=== PATIENT | female | born 1995 | race Caucasian/White ===

== ENCOUNTER 2016-01-20 14:04 | Outpatient (RCR) | payer OTHER ==
[~2016-01-20 14:04] MED LIST: IBU800 M1 PO; PERCOCET 325 MG1 TA2 PO; PRENATA1 CTB PO
== END 2016-04-19 ==
LOC: WSOH
DX: M25.562 Pain in left knee (principal)

== ENCOUNTER 2016-12-19 15:10 | Outpatient (RCR) | payer OTHER | END 2016-12-30 13:50 | disposition still patient (30) | LOC: WSOH 15:10 | DX: S06.0X0A Concussion without loss of consciousness, initial encounter (principal); M79.651 Pain in right thigh; R51 Headache; Y04.2XXA Assault by strike against or bumped into by another person, initial encounter; Y04.1XXA Assault by human bite, initial encounter; Y92.219 Unspecified school as the place of occurrence of the external cause; Y99.0 Civilian activity done for income or pay ==

== ENCOUNTER 2017-02-20 09:59 | Outpatient (RCR) | payer OTHER | END 2017-03-06 15:00 | disposition still patient (30) | LOC: WSOH 09:59 | DX: S06.0X0D Concussion without loss of consciousness, subsequent encounter (principal); Y04.1XXD Assault by human bite, subsequent encounter; Y99.0 Civilian activity done for income or pay ==

== ENCOUNTER 2018-07-05 10:07 | Emergency (ER) | payer SELFPAY ==
[~2018-07-05] VITALS: Ht 162.6 cm; Wt 68.2 kg
[2018-07-05 10:16] VITALS: BP 135/89; TEMP 97.9
[2018-07-05 10:39] LABS: BASO % 0.4 % (0.0-2.0); EOS # 0.2 (0.0-0.7); EOS % 1.8 % (0-4.0); GRAN # 6.9 (1.4-6.5); GRAN % 74.9 % (42.2-75.2); HEMOGLOBIN 12.2 g/dl (12.5-16.0); LYMPH # 1.4 (1.2-3.4); LYMPH % 14.6 % (20.0-51.0); MEAN CELL VOLUME 86 fl (80.0-100.0); MEAN CORPUSCULAR HEMOGLOBIN 29 pg (27.0-31.0); MEAN CORPUSCULAR HGB CONC 33 g/dl (33.0-37.0); MEAN PLATELET VOLUME 9.9 fl (7.4-10.4); MONO # 0.7 (0.1-0.6); MONO % 7.9 % (1.7-9.3); PLATELET COUNT 222 K/mm3 (130-400); RED BLOOD COUNT 4.28 M/mm3 (4.10-5.30); REDCELL DISTRIBUTION WIDTH-CV 12.4 % (11.5-14.5)
[2018-07-05 10:42] LABS: HEMATOCRIT 36.8 % (37.0-47.0)
[2018-07-05 10:48] LABS: ALBUMIN 3.4 gm/dL (3.5-5.0); BILIRUBIN,TOTAL 0.5 mg/dL (0.0-1.0); CALCIUM 8.8 mg/dL (8.4-10.2); CREATININE, serum 0.71 (0.52-1.25); POTASSIUM 3.6 mmol/L (3.4-5.0); TOTAL PROTEIN 6.6 gm/dL (6.4-8.2)
[2018-07-05 11:32] VITALS: PULSE 93
== END 2018-07-05 11:32 | disposition home or self-care (01) ==
LOC: COL.ER 10:07
PROVIDERS: Emergency Medicine
DX: O9A.213 Injury, poisoning and certain other consequences of external causes complicating pregnancy, third trimester (principal); S30.1XXA Contusion of abdominal wall, initial encounter; Z3A.30 30 weeks gestation of pregnancy; W50.0XXA Accidental hit or strike by another person, initial encounter

== ENCOUNTER 2018-07-05 11:54 | Outpatient (CLI) | payer SELFPAY ==
[~2018-07-05] VITALS: Ht 162.6 cm; Wt 122.3 kg
[2018-07-05 11:55] VITALS: TEMP 99.3
[2018-07-05 12:00] VITALS: BP 119/75; PULSE 87; TEMP 99.3
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
--- NOTE | 2018-07-05 12:55 | NUR ---
1244- EFM and TOCO off, Discharge paperwork given and explained. Pt denies questions. 1255- Pt leaves unit ambulatory with discharge instructions in stable condition.
== END 2018-07-05 12:55 | disposition home or self-care (01) ==
LOC: LDRO 11:54
DX: O9A.213 Injury, poisoning and certain other consequences of external causes complicating pregnancy, third trimester (principal); Z3A.29 29 weeks gestation of pregnancy

== ENCOUNTER 2018-08-26 00:59 | Inpatient (IN) | payer BC, MEDICAID ==
[2018-08-26] VITALS (57 sets, daily range): BP systolic 78–140; BP diastolic 43–84; PULSE 74–139; TEMP 97.7–98.9
[~2018-08-26] VITALS: Ht 162.6 cm; Wt 80.0 kg
--- NOTE | 2018-08-26 01:10 | NUR ---
PT ARRIVED TO UNIT AMBULATORY WITH SPOUSE WITH COMPLAINTS OF CONTRACTIONS THAT BEGAN AT 1930 LAST EVENING. PT TO ROOM, CHANGED INTO GOWN. EFM X2 APPLIED, VS OBTAINED, SVE PERFORMED.
--- NOTE | 2018-08-26 02:15 | NUR ---
[id number]- DIFFICULTY TRACING CONTRACTION PATTERN DUE TO MATERNAL POSITION, TOCO ADJUSTED.
[2018-08-26 02:59] LABS: BASO # 0.1 (0.0-0.2); BASO % 0.3 % (0.0-2.0); EOS % 0.1 % (0-4.0); GRAN # 12.6 (1.4-6.5); GRAN % 84.7 % (42.2-75.2); HEMOGLOBIN 11.6 g/dl (12.5-16.0); LYMPH # 1.3 (1.2-3.4); LYMPH % 8.9 % (20.0-51.0); MEAN CELL VOLUME 82 fl (80.0-100.0); MEAN CORPUSCULAR HEMOGLOBIN 27 pg (27.0-31.0); MEAN CORPUSCULAR HGB CONC 33 g/dl (33.0-37.0); MEAN PLATELET VOLUME 10.6 fl (7.4-10.4); MONO # 0.8 (0.1-0.6); MONO % 5.6 % (1.7-9.3); PLATELET COUNT 207 K/mm3 (130-400); RED BLOOD COUNT 4.26 M/mm3 (4.10-5.30); REDCELL DISTRIBUTION WIDTH-CV 12.7 % (11.5-14.5)
--- NOTE | 2018-08-26 03:15 | NUR ---
0305- JOSH AVILA IN ROOM FOR EPIDURAL PLACMENT. 0306- PT SITTING UP AT BEDSIDE, BP TO TAKE EVERY 5 MINUTES, PULSE OX ON. US TRACING MATERNAL HR DURING EPIDURAL PLACEMENT. 0311- SINGLE SHOT GIVEN BY JOSH AVILA. PT TOLERATED WELL. 0315- PT REPOSITIONED INTO SEMIFOWLERS WITH LEFT WEDGE.
--- NOTE | 2018-08-26 06:25 | NUR ---
Report from Mickey Plasencia RN and care of patient assumed. Patient comfortable with epidural and sitting upright in bed. Herrings adjusted.
--- NOTE | 2018-08-26 06:42 | NUR ---
Patient calls out and reports feeling light headed and dizzy. Patient repositioned LL, LR bolus infusing and Ephedrine given, see EMAR. Late decelerations noted with contractions and FHR noted tachycardic following interventions at 0652. Patient reports feeling better at 0653. Dr. Schwarz updated by Mickey Plasencia RN, see physician notification. Will continue interventions.
--- NOTE | 2018-08-26 07:05 | NUR ---
FHR remains tachycardic. RN remains at bedside adjusting toco. Patient repositioned RL, states she still feels better. Will update physician when on unit, in transit to hospital. VS WNL at this time.
--- NOTE | 2018-08-26 07:23 | NUR ---
See physician notification. Patient resting comfortably in RL position. LR bolus still infusing.
--- NOTE | 2018-08-26 08:00 | NUR ---
Patient repositioned RN at bedside palpating abdomen and adjusting toco.
--- NOTE | 2018-08-26 08:15 | NUR ---
0815- Dr. Schwarz on unit, reviews FHR strip and contraction pattern since admission. 0820- Physician at bedside. Discussing AROM, patient agrees. 0822- AROM by Dr. Schwarz for moderate amount of clear fluid. SVE 8/100/-2 with bloody show. Pericare given, patient repositioned LL. Orders to continue to allow patient to labor spontaneously. [place] adjusted.
--- NOTE | 2018-08-26 09:00 | NUR ---
0845- Patient repositioned RL. Difficulty tracing contractions via toco after repositioning. RN at bedside adjusting monitor and palpating abdomen. Contractions noted every 2-2.5 minutes with relaxed uterine tone in between.
--- NOTE | 2018-08-26 09:45 | NUR ---
Dr. Schwarz at bedside. SVE unchanged, cervix noted to be slightly swollen on right side. Discussing plan of care to allow to labor for another hour and recheck cervix at 1100. Patient repositoned LL with peanut ball in place. Comfortable with epidural.
--- NOTE | 2018-08-26 11:25 | NUR ---
Patient repositioned RL with peanut ball in place. Comfortable with epidural.
--- NOTE | 2018-08-26 12:15 | NUR ---
Dr. Schwarz at bedside. SVE unchanged. Discussing plan of care. Decision for section at 1220. Patient prepped for surgery. Shave completed, preop prep completed per protocol. Bryan Mahajan CRNA at bedside. 1225- Patient off EFM to OR. See intraoperative report.
--- NOTE | 2018-08-26 14:20 | NUR ---
1400- Patient meets PACU discharge criteria. VS WNL. Transferred to room 209 and oriented to new plan of care and room. 1415- BP noted to be trending hypotensive. Pulse elevated but remains in range that patient had been running throughout labor/surgery. Vaginal bleeding WNL. Patient denies abominal tenderness or pain, denies nausea or dizziness. Asymptomatic. See physician notification, orders recieved and Hespan infusing. See EMAR.
--- NOTE | 2018-08-26 15:00 | NUR ---
Vital signs WNL. Vaginal bleeding remains WNL and patient denies any concerns or complaints. Hespan continues to infuse per order.
--- NOTE | 2018-08-26 17:34 | NUR ---
1715 Visitng with family. Denies needs. Medicated with Percocet 1 tab for control of pain. Snack arrives. Encouraged to feed infant after eating.
[2018-08-27 00:05] VITALS: BP 109/57; PULSE 82; TEMP 97.9
[2018-08-27 04:01] VITALS: BP 115/66; PULSE 98; TEMP 97.6
[2018-08-27 07:18] LABS: BASO % 0.3 % (0.0-2.0); EOS # 0.1 (0.0-0.7); GRAN # 8.6 (1.4-6.5); GRAN % 74.4 % (42.2-75.2); LYMPH # 1.8 (1.2-3.4); LYMPH % 15.7 % (20.0-51.0); MEAN CELL VOLUME 84 fl (80.0-100.0); MEAN CORPUSCULAR HGB CONC 33 g/dl (33.0-37.0); MEAN PLATELET VOLUME 10.4 fl (7.4-10.4); MONO % 8.3 % (1.7-9.3); PLATELET COUNT 167 K/mm3 (130-400); RED BLOOD COUNT 2.92 M/mm3 (4.10-5.30)
[2018-08-27 07:24] LABS: HEMATOCRIT 24.4 % (37.0-47.0); MEAN CORPUSCULAR HEMOGLOBIN 27 pg (27.0-31.0)
[2018-08-27 07:45] VITALS: BP 109/67; PULSE 83; TEMP 97.6
[2018-08-27 13:00] VITALS: BP 102/59; PULSE 90; TEMP 98.5
--- NOTE | 2018-08-27 14:00 | NUR ---
1406 Motrin 800 mg p.o. given by Elly tian per request and as ordered.
--- NOTE | 2018-08-27 17:15 | NUR ---
1720 Rests in bed, alert. Percocet 5/325 mg. given per request and as ordered. baby, denies any other need at this time.
--- NOTE | 2018-08-27 18:45 | NUR ---
Report recieved. well. Updated whiteboard and reviewed POC. Denied questions or concerns.
[2018-08-27 20:30] VITALS: BP 108/54; PULSE 82; TEMP 98
[2018-08-28 09:00] VITALS: BP 112/73; PULSE 76; TEMP 97.9
[2018-08-28 10:26] LABS: MEAN CELL VOLUME 84 fl (80.0-100.0); MEAN CORPUSCULAR HGB CONC 33 g/dl (33.0-37.0); PLATELET COUNT 214 K/mm3 (130-400); RED BLOOD COUNT 3.05 M/mm3 (4.10-5.30); REDCELL DISTRIBUTION WIDTH-CV 13.2 % (11.5-14.5)
[2018-08-28 10:37] LABS: HEMATOCRIT 25.7 % (37.0-47.0); HEMOGLOBIN 8.4 g/dl (12.5-16.0); MEAN CORPUSCULAR HEMOGLOBIN 28 pg (27.0-31.0)
--- NOTE | 2018-08-28 11:30 | NUR ---
Initial visit; Mom and Grandmother thanked [employer] for offering congratulations and God's blessings for the of their baby girl. [employer] thanked Mom for choosing [facility].
[2018-08-28 16:15] VITALS: BP 108/75; PULSE 85; TEMP 98.3
[2018-08-28 19:35] VITALS: BP 109/76; PULSE 81; TEMP 97.9
[2018-08-29 08:20] VITALS: BP 122/72; PULSE 82; TEMP 97.7
[2018-08-29] MEDS ORDERED: PERCOCET 325 MG1 TA2 PO (08:57)
[2018-08-29] MEDS ORDERED: MOTRIN 800800 MG/TAB PO (08:57)
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
[2018-08-29 17:00] VITALS: BP 114/84; PULSE 89; TEMP 97.7
[2018-08-29 19:00] VITALS: BP 119/70; PULSE 84; TEMP 98.6
[2018-08-30 05:00] VITALS: BP 114/67; PULSE 80; TEMP 98.3
[2018-08-30 07:00] VITALS: BP 118/78; PULSE 82; TEMP 98.5
== END 2018-08-30 16:15 | disposition home or self-care (01) | DRG 787 ==
LOC: LDRO 00:59 → OB 01:05 → LDR 01:05 → OB 14:00
PROVIDERS: Obstetrics & Gynecology; Student in an Organized Health Care Education/Training Program; ADMIT Obstetrics & Gynecology
PROC: 10D00Z1 Extraction of Products of Conception, Low, Open Approach (ICD-10-PCS; principal; 2018-08-26)
DX: O60.23X0 Term delivery with preterm labor, third trimester, not applicable or unspecified (principal); D62 Acute posthemorrhagic anemia; O44.23 Partial placenta previa NOS or without hemorrhage, third trimester; O34.211 Maternal care for low transverse scar from previous cesarean delivery; O99.344 Other mental disorders complicating childbirth; F32.9 Major depressive disorder, single episode, unspecified; F41.9 Anxiety disorder, unspecified; O99.52 Diseases of the respiratory system complicating childbirth; J45.909 Unspecified asthma, uncomplicated; O90.81 Anemia of the puerperium; O62.0 Primary inadequate contractions; Z3A.36 36 weeks gestation of pregnancy; Z37.0 Single live birth; Z86.14 Personal history of Methicillin resistant Staphylococcus aureus infection
CPT/HCPCS: J0690; J1885; J2175; J2370; J2405; J2590; J2795; J3010; J7120